=== PATIENT | male | born 1960 | race Caucasian/White ===

== ENCOUNTER 2018-09-01 21:28 | Emergency (ER) | payer MEDICAID, OTHER ==
[~2018-09-01] VITALS: Ht 167.6 cm; Wt 83.0 kg
[2018-09-01 21:41] VITALS: BP 161/83
[2018-09-01] MEDS ORDERED: TETRACAINE HCL/PF 0.5% UD 2 ML BOTTLE ONE (21:44)
[2018-09-01] MEDS ORDERED: FLUORESCEIN SODIUM OPHTH 1 EA STRIP ONE (21:44)
[2018-09-01] MEDS ORDERED: TETRACAINE HCL 0.5% OPHTALMIC 15 ML BOTTLE OP ONE (22:00)
[2018-09-01] MEDS ORDERED: FLUORESCEIN SODIUM OPHTH 1 EA STRIP OP ONE (22:00)
[2018-09-01] MEDS ORDERED: IBUPROFEN 400 MG TABLET PO ONE (22:30)
== END 2018-09-01 22:33 | disposition home or self-care (01) ==
LOC: ER 21:30
DX: H18.821 Corneal disorder due to contact lens, right eye (principal); Z85.51 Personal history of malignant neoplasm of bladder
CPT/HCPCS: 99283; A4606; Z7610

== ENCOUNTER 2023-12-30 23:09 | Emergency (ER) | payer MEDICARE, OTHER ==
[~2023-12-30] VITALS: Ht 175.3 cm; Wt 90.7 kg
[2023-12-30 23:16] VITALS: TEMP 98.4
[2023-12-30] MEDS ORDERED: CLONIDINE HCL 0.1 MG TABLET ONE (23:29)
[2023-12-30] MEDS: CLONIDINE HCL 0.1 MG TABLET PO ONE (23:31)
[2023-12-31] LABS: BASOPHILS % (AUTO) 0.5 % (0.0-2.0); EOSINOPHILS # (AUTO) 0.2 K/uL (0.0-0.7); EOSINOPHILS % (AUTO) 2.8 % (0.0-6.0); HEMATOCRIT 44 % (39-51); HEMOGLOBIN 14.7 g/dL (13.5-17.5); LYMPHOCYTES # (AUTO) 1.8 K/uL (0.8-4.8); LYMPHOCYTES % (AUTO) 24.8 % (20.0-44.0); MEAN CORPUSCULAR HEMOGLOBIN 30 PG (26.0-33.0); MEAN CORPUSCULAR HGB CONC 34 g/dl (31.0-36.0); MEAN CORPUSCULAR VOLUME 89 fL (80-96); MONOCYTES # (AUTO) 0.6 K/uL (0.1-1.30); MONOCYTES % (AUTO) 8.5 % (2.0-12.0); NEUTROPHILS # (AUTO) 4.7 K/uL (1.8-8.9); NEUTROPHILS % (AUTO) 63.4 % (43.0-81.0); PLATELET COUNT (AUTO) 170 K/uL (150-450); RED CELL DISTRIBUTION WIDTH 13.8 % (11.5-15.0); WHITE BLOOD COUNT (AUTO) 7.4 K/uL (4.3-11.0)
[2023-12-31 00:10] LABS: CALCIUM, SERUM 8.5 mg/dL (8.5-10.1); CREATININE 1.2 mg/dL (0.6-1.3)
[2023-12-31 00:21] LABS: ALBUMIN 3.1 g/dL (3.4-5.0); BILIRUBIN,TOTAL 0.2 mg/dL (0.2-1.0); TOTAL PROTEIN, SERUM 6.7 g/dL (6.4-8.2)
[2023-12-31 00:26] VITALS: BP 150/87; O2SAT 99
== END 2023-12-31 02:17 | disposition home or self-care (01) ==
LOC: ER 23:12
DX: I10 Essential (primary) hypertension (principal); R11.0 Nausea; Z85.51 Personal history of malignant neoplasm of bladder
CPT/HCPCS: 36415; 70450-TC; 71045-TC; 80053-TC; 83880; 84484-TC; 85025-TC